=== PATIENT | female | born 1975 | race Caucasian/White ===

== ENCOUNTER 2020-01-19 05:58 | Day surgery (SDC) | payer OTHER | END 2020-01-19 11:05 | disposition home or self-care (01) | LOC: AMB-ENDOS 05:58 | DX: D13.1 Benign neoplasm of stomach (principal); K44.9 Diaphragmatic hernia without obstruction or gangrene ==

== ENCOUNTER 2020-12-17 06:00 | Day surgery (SDC) | payer OTHER | END 2020-12-17 17:35 | disposition home or self-care (01) | LOC: CIR.AMB 06:00 | PROVIDERS: ATTEND Obstetrics & Gynecology | DX: Z30.2 Encounter for sterilization (principal); Z20.828 Contact with and (suspected) exposure to other viral communicable diseases ==